=== PATIENT | male | born 1960 | race Caucasian/White ===

== ENCOUNTER → 2020-10-15 10:53 | Outpatient (BNVA) | payer OTHER, SELFPAY | PROVIDERS: Visit Provider Physician Assistant Medical | DX: M79.641 Pain in right hand (principal); M86.9 Osteomyelitis, unspecified | CPT/HCPCS: 73110; 73130; 99203 ==

== ENCOUNTER → 2020-10-19 13:15 | Outpatient (BNVA) | payer OTHER, SELFPAY | PROVIDERS: Visit Provider Internal Medicine | DX: M79.641 Pain in right hand (principal) | CPT/HCPCS: 99213 ==

== ENCOUNTER → 2020-10-26 09:44 | Outpatient (BNVA) | payer OTHER, SELFPAY | PROVIDERS: Visit Provider Internal Medicine | DX: M79.641 Pain in right hand (principal) | CPT/HCPCS: 99213 ==